=== PATIENT | male | born 1970 | race Caucasian/White ===

== ENCOUNTER → 2020-01-01 09:22 | Outpatient (CLI) | payer OTHER, SELFPAY ==
--- NOTE | 2020-01-01 09:26 | DI.RAD.S_ITS ---
PROCEDURE: XR CHEST 2V INDICATIONS: Cough TECHNIQUE: 2 views of the chest were acquired. COMPARISON: None. FINDINGS: Surgical changes and devices: None. Lungs and pleura: Lungs are clear. No pleural effusions or pneumothorax. Mediastinum: Mediastinal contours are normal. Heart size is normal. Bones and chest wall: No suspicious bony abnormalities. Age-appropriate bony degenerative changes are seen. Soft tissues appear unremarkable. IMPRESSION: No acute cardiopulmonary process is seen. No focal infiltrates. Dictated by: Clint Christian M.D. on 01/01/2020 at 8:51 Approved by: Clint Christian M.D. on 01/01/2020 at 8:52
== END ==
PROVIDERS: Family Provider Family Medicine; PCP Family Medicine; Referring Provider Registered Nurse; Visit Provider Registered Nurse
DX: R05 Cough (principal)
CPT/HCPCS: 71046

== ENCOUNTER → 2020-01-28 17:33 | Outpatient (CLI) | payer OTHER, SELFPAY ==
--- NOTE | 2020-01-28 17:35 | DI.RAD.S_ITS ---
PROCEDURE: XR SHOULDER RT MIN 2V INDICATIONS: Worsening shoulder pain, and the patient reports prior shoulder surgery related to trauma years ago. TECHNIQUE: 3 views of the shoulder were acquired. COMPARISON: None. FINDINGS: Bones: No fractures or dislocations but there is close apposition of the upper margin of the humeral head against the undersurface of the acromion on the external rotation view, to the degree that a rotator cuff tear may be present allowing this subluxation cephalad. Also noted are several lucencies in the subchondral cortex/medullary space there sharply demarcated, rounded, and potentially postoperative change versus unusual manifestation of subchondral degenerative cysts.. No suspicious bony lesions. Visualized ribs appear intact. Soft tissues: No suspicious soft tissue calcifications. IMPRESSION: Followup by MR scanning may be warranted. As discussed above there is close apposition of the humeral head to the undersurface of the acromium on the external rotation view. The patient reports prior trauma and surgery. Full-thickness retracted rotator cuff tear may explain that appearance. Dictated by: Paddy Fox M.D. on 01/29/2020 at 8:57 Approved by: Paddy Fox M.D. on 01/29/2020 at 9:00
== END ==
PROVIDERS: Family Provider Family Medicine; PCP Family Medicine; Referring Provider Family Medicine; Visit Provider Family Medicine
DX: M25.511 Pain in right shoulder (principal); G89.18 Other acute postprocedural pain
CPT/HCPCS: 73030

== ENCOUNTER → 2020-02-14 09:32 | Outpatient (CLI) | payer OTHER, SELFPAY ==
--- NOTE | 2020-02-14 09:34 | DI.RAD.S_ITS ---
PROCEDURE: XR SHOULDER LT MIN 2V INDICATIONS: left shoulder pain TECHNIQUE: 3 views of the shoulder were acquired. COMPARISON: [facility], CR, XR SHOULDER RT MIN 2V, 01/28/2020, 17:34. FINDINGS: Bones: No fractures or dislocations. No suspicious bony lesions. Visualized ribs appear intact. The acromion is mildly laterally downsloping. There is mild subacromial spurring seen. Soft tissues: No suspicious soft tissue calcifications. The visualized lung demonstrates an unremarkable appearance. IMPRESSION: Age-appropriate bony degenerative changes are seen. Dictated by: Clint Christian M.D. on 02/14/2020 at 9:52 Approved by: Clint Christian M.D. on 02/14/2020 at 9:53
== END ==
PROVIDERS: Family Provider Family Medicine; PCP Family Medicine; Referring Provider Family Medicine; Visit Provider Family Medicine
DX: M25.512 Pain in left shoulder (principal)
CPT/HCPCS: 73030

== ENCOUNTER → 2020-03-30 11:39 | Outpatient (CLI) | payer OTHER, SELFPAY ==
--- NOTE | 2020-03-30 | DI.MRI.S_ITS ---
PROCEDURE: MR SHOULDER LT WO CON INDICATIONS: PAIN IN LEFT SHOULDER TECHNIQUE: Noncontrast oblique coronal T2 fast spin echo with fat saturation, oblique sagittal T1 spin echo and T2 fast spin echo with fat saturation, axial T1 spin echo and T2 fast spin echo with fat saturation through the shoulder. COMPARISON: [facility], CR, XR SHOULDER LT MIN 2V, 02/14/2020, 9:33. FINDINGS: Image quality: Diagnostic. Rotator cuff: There is a moderate to large full-thickness tear of the superior rotator cuff that results in a complete supraspinatus tendon tear. This tear measures at least 3 cm in transverse dimension with retraction of the torn tendon fragments to approximate the tip of the lateral acromion by roughly 3 cm, as well. Moderate to high grade articular surface partial thickness tearing of the distal infraspinatus tendon is identified with associated prominent tendinopathy. A partial-thickness tear is noted to extend along the myotendinous junction. Low grade articular surface partial thickness tearing and mild tendinopathy of the subscapularis tendon is present. The teres minor tendon is intact. There is mild supraspinatus and infraspinatus muscle atrophy. Moderate teres minor muscle atrophy is present. No significant subscapularis muscle atrophy is present. Bones and bursae: No acute fracture, dislocation, or suspicious osseous lesion is identified involving the osseous structures of the left shoulder. There are mild degenerative changes of the glenohumeral joint. There is a moderate to large glenohumeral joint effusion. Moderate to severe degenerative changes of the acromioclavicular joint are present with undersurface osteophytes and degenerative/reactive marrow changes. A moderate amount of fluid is contained within the subacromial subdeltoid bursa. Capsule and soft tissues: Evaluation of the labrum and glenohumeral ligaments is suboptimal without intra-articular contrast. However, there does appear to be tearing along the posterior aspect of the labrum extending from the 12 o'clock position to the 6 o'clock position. The long head of the biceps tendon is not evident within the bicipital groove and is felt to be torn and retracted beyond the bicipital groove/[id number]. No acute injuries are suspected involving the glenohumeral ligaments. IMPRESSION: 1. Moderate to large full-thickness tear of the supraspinatus tendon with associated minimal/early muscle atrophy. 2. Moderate to high-grade delaminating partial thickness tear of the infraspinatus tendon with corresponding tendinopathy. 3. Low-grade partial-thickness tearing and mild tendinopathy of the subscapularis tendon. 4. Moderate to severe degenerative changes of the acromioclavicular joint. 5. Moderate size posterior labral tear. 6. Full-thickness tear of the long head of the biceps tendon with moderate distal retraction beyond the [id number]. 7. Mild degenerative changes of the glenohumeral joint. Dictated by: Homer Francis M.D. on 03/30/2020 at 12:44 Approved by: Homer Francis M.D. on 03/30/2020 at 13:13
== END ==
PROVIDERS: Referring Provider Orthopaedic Surgery; Visit Provider Orthopaedic Surgery
DX: M25.512 Pain in left shoulder (principal); M75.122 Complete rotator cuff tear or rupture of left shoulder, not specified as traumatic; M25.412 Effusion, left shoulder; S43.492A Other sprain of left shoulder joint, initial encounter
CPT/HCPCS: 73221

== ENCOUNTER → 2020-04-17 13:21 | Outpatient (CLI) | payer OTHER, SELFPAY ==
--- NOTE | 2020-04-17 | DI.MRI.S_ITS ---
PROCEDURE: MR SHOULDER RT W CON INDICATIONS: Pain in right shoulder TECHNIQUE: After the administration of 12 mL of dilute intra-articular Gadolinium contrast, oblique coronal T1 and T2 spin echo with fat saturation, oblique sagittal T1 spin echo with and without fat saturation, oblique sagittal T2 fast spin echo with fat saturation, axial T1 spin echo with fat saturation through the shoulder. COMPARISON: None. FINDINGS: Image quality: Excellent. Rotator cuff: There is prior rotator cuff tendon repair with postsurgical changes. There is full-thickness rupture of distal supraspinatus and infraspinatus at their insertion on the humeral head with up to 5.1 cm medial retraction of torn tendon fibers to the level of acromioclavicular joint. Distal subscapularis tendinosis and low-grade intrasubstance partial-thickness tear is seen. Severe supraspinatus and infraspinatus muscle atrophy is seen on sagittal images. Bones and bursae: Postsurgical changes are noted in the acromioclavicular joint and posterior lateral humeral head. No gross marrow edema. No acute fracture or dislocation. Capsule and soft tissues: The glenohumeral ligaments appear intact. The long head of the biceps tendinosis and low to moderate grade partial-thickness tear is seen. The rotator interval appears normal, without fibrosis. The coracohumeral ligament is of normal thickness. No intra-articular bodies. IMPRESSION: 1. Prior rotator cuff tendon repair with postsurgical changes. No acute fracture or dislocation. 2. Full-thickness rupture of distal supraspinatus and infraspinatus at their insertions on humeral head with up to 5.1 cm medial retraction of torn tendon fibers to the level of acromioclavicular joint. Moderate to severe supraspinatus and infraspinatus tendinosis. 3. Distal subscapularis tendinosis and low-grade intrasubstance partial-thickness tear. Proximal intra-articular portion of long head of biceps tendinosis and moderate grade partial-thickness tear. 4. No gross focal labral tear. Dictated by: Rodolfo Perez M.D. on 04/17/2020 at 15:11 Approved by: Rodolfo Perez M.D. on 04/17/2020 at 16:58
--- NOTE | 2020-04-17 | DI.RAD.S_ITS ---
PROCEDURE: FL SHOULDER INJECTION MR/CT RT INDICATIONS: Pain in right shoulder TECHNIQUE: The indications, alternatives, benefits, risks, and complications of the procedure were explained to the patient. Written informed consent was obtained and placed in the chart. The shoulder was examined fluoroscopically and a site for needle placement chosen for entry into the glenohumeral joint from an anterior approach. The skin was prepped and draped in a sterile fashion, and 1% lidocaine infiltrated from skin down to joint capsule. A spinal needle was inserted into the glenohumeral joint, and a small amount of iodinated contrast media injected to confirm intra-articular placement of the needle tip. This was followed by approximately 12 mL dilute solution of a gadolinium containing MR contrast agent. The needle was removed and a dressing was applied. The patient was given postprocedural instructions and sent to the MR suite for MR imaging. FINDINGS: Two fluoroscopic spot images demonstrate intra-articular location of injected iodinated contrast. IMPRESSION: Successful fluoroscopically guided administration of dilute Gadolinium solution into the shoulder joint for MR arthrogram. Dictated by: Jun Ribeiro M.D. on 04/17/2020 at 14:24 Approved by: Jun Ribeiro M.D. on 04/17/2020 at 14:25
== END ==
PROVIDERS: PCP Family Medicine; Referring Provider Orthopaedic Surgery; Visit Provider Orthopaedic Surgery
DX: M25.511 Pain in right shoulder (principal); M75.121 Complete rotator cuff tear or rupture of right shoulder, not specified as traumatic; S46.111A Strain of muscle, fascia and tendon of long head of biceps, right arm, initial encounter
CPT/HCPCS: 23350; 73222; 77002

== ENCOUNTER 2022-05-22 21:01 | Emergency (ER) | payer OTHER, SELFPAY ==
[2022-05-22 21:11] VITALS: BP 167/86; PULSE 94; RESP 16; TEMP 37; O2SAT 99
== END 2022-05-23 03:10 | disposition left against medical advice (07) ==
PROVIDERS: Emergency Provider Emergency Medicine; Family Provider Family Medicine; PCP Family Medicine
CPT/HCPCS: 99281

== ENCOUNTER 2022-07-02 01:51 | Emergency (ER) | payer OTHER, SELFPAY ==
[2022-07-02 01:58] VITALS: BP 144/81; PULSE 110; RESP 20; TEMP 37.1; O2SAT 99; BMI 33.6
--- NOTE | 2022-07-02 02:01 | DI.RAD.S_ITS ---
PROCEDURE: XR CHEST 1V INDICATIONS: chest pain TECHNIQUE: One view of the chest was acquired. COMPARISON: [facility], CR, XR CHEST 2V, 01/01/2020, 9:37. FINDINGS: Surgical changes and devices: None. Lungs and pleura: Lungs are clear. No pleural effusions or pneumothorax. Mediastinum: Mediastinal contours appear normal. Heart size is normal. Bones and chest wall: No suspicious bony lesions. Overlying soft tissues appear unremarkable. IMPRESSION: No acute cardiopulmonary findings Approved by: Jatinder Crawley M.D. on 07/02/2022 at 6:22
[2022-07-02 02:22] LABS: White Blood Cell Count 10.3 X10^3/uL (4.5-11.0)
--- NOTE | 2022-07-02 02:22 | ED_ITS ---
HPI - Chest Pain General Chief Complaint: Chest Pain Stated Complaint: CHEST PAIN Time Seen by Provider: 07/02/22 02:12 Source: patient Mode of arrival: Ambulatory Limitations: no limitations History of Present Illness HPI narrative: Patient is a 51-year-old male who is here for evaluation of approximately 7-10 days of right-sided chest discomfort. He states that it really only hurts when he is moving his right shoulder. Hurts somewhat with touching the area that is more towards the center of his chest. He has been using a digger bar and also a shovel at work. It does hurt somewhat when he takes a deep breath. He is no skin changes over the area. Has never had anything like this in the past. Related Data Previous Rx's Medication Instructions Recorded epinephrine 0.3 mg/0.3 mL 0.3 ml IM ONCE #2 ea 07/08/20 injection, auto-injector Allergies Allergy/AdvReac Type Severity Reaction Status Date / Time bee venom protein (honey bee) Allergy Severe anaphylaxis Unverified 01/28/22 08:34 [BEE VENOM PROTEIN (HONEY BEE)] prednisone [PREDNISONE] Allergy Severe chest Unverified 01/28/22 08:34 tightness,difficult breathing and swelling ampicillin [AMPICILLIN] Allergy Intermediate rash Unverified 01/28/22 08:34 Review of Systems Constitutional Constitutional: Reports system reviewed and no additional complaints, except as documented Cardiovascular Cardiovascular: Reports system reviewed and no additional complaints, except as documented Respiratory Respiratory: Reports system reviewed and no additional complaints, except as documented Gastrointestinal Gastrointestinal: Reports system reviewed and no additional complaints, except as documented Integumentary/Breasts Skin/Breast: Reports system reviewed and no additional complaints, except as documented Neurologic Neurologic: Reports system reviewed and no additional complaints, except as documented Hematologic/Lymphatic On Anticoagulants: No Patient History Medical History Anxiety (~1990) Bipolar disorder Depression (~1990) Foot pain (~2015) Hand pain Obesity (BMI 30-39.9) Plantar warts (~2015) Post traumatic stress disorder (PTSD) (~1990) Shoulder pain (~2010) Substance abuse (~1990) Surgical History (Updated 01/28/22 @ 09:03 by Maria Esther Narvaez DO) Anesthesia Hernia of abdominal wall (~2016) History of shoulder surgery (~2011) Family History Grandfather Lung cancer Social History Smoking Status: Current every day smoker Smoking Status: Current every day smoker Exam Initial Vital Signs Initial Vital Signs: Vital Signs Temperature 98.7 F 07/02/22 01:58 Pulse Rate 110 H 07/02/22 01:58 Respiratory Rate 20 07/02/22 01:58 Blood Pressure 144/81 H 07/02/22 01:58 Pulse Oximetry 99 07/02/22 01:58 Oxygen Delivery Method 07/02/22 01:58 Const General: cooperative and comfortable HENMT Head: normal to inspection and normocephalic Face and sinus: normal facial exam Chest Chest: No crepitus Other: Tenderness along the costosternal border on the right. Resp Effort & Inspection: normal respiratory effort Auscultation: clear to auscultation bilaterally Cardio Rate: regular rate Rhythm: regular rhythm Skin General: no rashes or lesions noted Neuro General: patient alert, patient awake and moves all extremities Extrem General: normal to inspection Psych Appearance: grossly normal Course Orders Ordered: ED Orders 07/02/22 02:00 Complete Blood Count AUTO DIFF Stat Comprehensive Metabolic Panel Stat Lipase Stat Magnesium Stat Troponin & CK Cardiac Panel Stat 07/02/22 02:01 XR chest 1V Stat 07/02/22 02:07 EKG-12 Lead Stat Vital Signs Vital signs: Vital Signs - 8 hr 07/02/22 01:58 Temperature 98.7 F Pulse Rate 110 H Respiratory Rate 20 Blood Pressure 144/81 H Pulse Oximetry 99 Oxygen Delivery Method Room Air MDM - Chest Pain Lab Data Attestation: I reviewed the patient's lab results. Result diagrams: 07/02/22 02:00 07/02/22 02:00 Labs: Lab Results 07/02/22 07/02/22 Range/Units 02:00 02:00 WBC 10.3 (4.5-11.0) X10^3/uL RBC 4.59 (4.5-5.9) X10^6/uL Hgb 14.0 (13.5-17.5) g/dL Hct 41.4 (41-53) % MCV 90.3 (80-100) fL MCH 30.5 (26-34) PG MCHC 33.8 (30-36) % RDW 14.0 (11.6-14.8) % Neut % (Auto) 51.8 (50-75) % Lymph % (Auto) 35.9 (25-40) % [place] % (Auto) 8.3 (3-14) % Eos % (Auto) 3.0 (2-4) % Baso % (Auto) 1.0 (0-2) % Neut # (Auto) 5300 (6555-7740) /uL Lymph # (Auto) 3700 (5697-7425) /uL [place] # (Auto) 900 (0-900) /uL Eos # (Auto) 300 (0-450) /uL Baso # (Auto) 100 (0-100) /uL Sodium 139 (137-145) mmol/L Potassium 4.1 (3.4-5.1) mmol/L Chloride 105 (98-107) mmol/L Carbon Dioxide 24 (22-32) mmol/L BUN 25 H (9-20) mg/dL Creatinine 1.14 (0.66-1.25) mg/dL Estimated GFR > 60 (>60) mL/min BUN/Creatinine Ratio 21.9 (6-22) Glucose 111 H (70-100) mg/dL Calcium 8.8 (8.4-10.2) mg/dL Magnesium 2.2 (1.6-2.3) mg/dL Total Bilirubin 0.4 (0.2-1.3) mg/dL AST 32 (17-59) IU/L ALT 35 (<50) IU/L Alkaline Phosphatase 71 (38-126) U/L Total Creatine Kinase 388 H (55-170) U/L CK-MB (CK-2) 4.64 H (<2.37) ng/mL CK-MB (CK-2) Rel Index 1.2 L (1.5-5.0) % Troponin I < 0.012 (0.01-0.034) ng/mL Total Protein 7.3 (6.3-8.2) g/dL Albumin 4.3 (3.5-5.0) g/dL Globulin 3.0 (1.7-4.1) g/dL Albumin/Globulin Ratio 1.4 (1.0-2.8) Lipase 90 (23-300) U/L Imaging Data Chest x-ray: Radiologist's Impression: No acute findings ECG Data Attestation: I personally reviewed and interpreted this ECG as follows: Interpretation: Sinus rhythm Ventricular rate 95 Normal axis Normal QRS Normal QTC No ST T wave changes MDM Narrative Medical decision making narrative: Right-sided chest discomfort with movement of his right arm. EKG is unremarkable. Chest x-ray is unremarkable. Troponins negative. Low suspicion for ACS. High suspicion for musculoskeletal etiology given the fact that the symptoms occur when he uses his right arm and also has some tenderness along the costosternal border on the right. Will have patient continue with anti-infl ammatories. He was given return precautions. He expressed understanding and agreement. Discharge Plan Departure Patient Disposition: Home Clinical Impression: Right-sided chest wall pain Activity Restrictions/Additional Instructions: I do recommend that you continue with anti-inflammatories such as Motrin/ibuprofen or Naprosyn. Contact your primary doctor for follow-up. Return to the emergency department for any new or worsening symptoms. Prescriptions: No Action epinephrine 0.3 mg/0.3 mL auto-injector 0.3 ml IM ONCE Qty: 2 1RF Rx Instructions: as a single dose; may repeat once Referrals: Maria Esther Narvaez DO [Primary Care Provider] - Stand Alone Forms: Work Release Note
[2022-07-02 02:23] LABS: Alanine Aminotransferase 35 IU/L (<50); Albumin 4.3 g/dL (3.5-5.0); Albumin Globulin Ratio 1.4 (1.0-2.8); Alkaline Phosphatase 71 U/L (38-126); Aspartate Aminotransferase 32 IU/L (17-59); BUN Creatinine Ratio 21.9 (6-22); Bilirubin Total 0.4 mg/dL (0.2-1.3); Blood Urea Nitrogen 25 mg/dL (9-20); Calcium 8.8 mg/dL (8.4-10.2); Carbon Dioxide 24 mmol/L (22-32); Chloride 105 mmol/L (98-107); Creatine Kinase 388 U/L (55-170); Estimated Glomerular Filt Rate > 60 mL/min (>60); Glucose 111 mg/dL (70-100); HEMOLYSIS 30 (0-50); Hematocrit 41.4 % (41-53); Lipase 90 U/L (23-300); Lymphocytes Percent Auto 35.9 % (25-40); Magnesium 2.2 mg/dL (1.6-2.3); Mean Corpuscular HGB Conc 33.8 % (30-36); Mean Corpuscular Hemoglobin 30.5 PG (26-34); Mean Corpuscular Volume 90.3 fL (80-100); Monocytes Percent Auto 8.3 % (3-14); Neutrophils Percent Auto 51.8 % (50-75); Potassium 4.1 mmol/L (3.4-5.1); Red Blood Cell Count 4.59 X10^6/uL (4.5-5.9); Sodium 139 mmol/L (137-145); Total Protein 7.3 g/dL (6.3-8.2)
[2022-07-02 02:24] LABS: Add Manual Diff / Slide Review SLIDE REVIEW; Basophils Absolute Auto 100 /uL (0-100); Eosinophils Absolute Auto 300 /uL (0-450); Lymphocytes Absolute Auto 3700 /uL (1100-4500); Monocytes Absolute Auto 900 /uL (0-900); Neutrophils Absolute Auto 5300 /uL (1500-7000)
[2022-07-02 02:34] LABS: Troponin I < 0.012 ng/mL (0.01-0.034)
[2022-07-02 02:38] LABS: CKMB % Relative Index 1.2 % (1.5-5.0); Creatine Kinase MB 4.64 ng/mL (<2.37)
[2022-07-02 03:00] VITALS: BP 128/68; PULSE 93; RESP 18; O2SAT 95
[2022-07-02 03:27] LABS: Platelet Count 207 X10^3/uL (150-400); RBC Morphology Normal Morphology
== END 2022-07-02 03:38 | disposition home or self-care (01) ==
PROVIDERS: Emergency Provider Emergency Medicine; Family Provider Family Medicine; PCP Family Medicine
DX: R07.89 Other chest pain (principal)
CPT/HCPCS: 71045; 80053; 82550; 82553; 83690; 83735; 84484; 85025; 93005; 99283; 99284

== ENCOUNTER → 2023-08-08 | Outpatient (CLI) | payer OTHER, SELFPAY ==
--- NOTE | 2023-08-08 14:33 | DI.US.S_ITS ---
PROCEDURE: US ARTERIAL DUPLEX LE BI INDICATIONS: FIBROBLASTIC DISORDER. POSTERIOR TIBIAL TENDONITIS TECHNIQUE: Color and pulse Doppler interrogation was performed of both lower extremity arterial systems, with image documentation. COMPARISON: None. FINDINGS: Right lower extremity: Common femoral artery: 108 cm/sec, with triphasic flow. Deep femoral artery: 55 cm/sec, with triphasic flow. Proximal superficial femoral artery: 101 cm/sec, with triphasic flow. Mid superficial femoral artery: 109 cm/sec, with triphasic flow. Distal superficial femoral artery: 92 cm/sec, with triphasic flow. Popliteal artery: 68 cm/sec, with triphasic flow. Posterior tibial artery: 105 cm/sec, with triphasic flow. Anterior tibial artery/dorsalis pedis: 47 cm/sec, with biphasic flow. Kang-scale imaging description: No focal hemodynamically significant stenosis. Left lower extremity: Common femoral artery: 78 cm/sec, with triphasic flow. Deep femoral artery: 52 cm/sec, with triphasic flow. Proximal superficial femoral artery: 87 cm/sec, with triphasic flow. Mid superficial femoral artery: 78 cm/sec, with triphasic flow. Distal superficial femoral artery: 67 cm/sec, with triphasic flow. Popliteal artery: 71 cm/sec, with triphasic flow. Posterior tibial artery: 106 cm/sec, with by phase flow. Anterior tibial artery/dorsalis pedis: 79 cm/sec, with biphasic flow. Kang-scale imaging description: No focal hemodynamically significant stenosis. IMPRESSION: No focal hemodynamically significant stenosis. Biphasic and triphasic waveforms throughout. Dictated by: Jaqui Rodriguez M.D. on 08/09/2023 at 12:35 Approved by: Jaqui Rodriguez M.D. on 08/09/2023 at 12:38
== END ==
PROVIDERS: Family Provider Family Medicine; PCP Family Medicine; Referring Provider Podiatrist; Visit Provider Podiatrist
DX: M76.822 Posterior tibial tendinitis, left leg (principal); M72.9 Fibroblastic disorder, unspecified
CPT/HCPCS: 93925